=== PATIENT | female | born 1945 | race American Indian/Alaskan Native ===

== ENCOUNTER 2019-01-31 15:09 | Emergency (ER) | payer MEDICARE ==
[2019-01-31 16:27] VITALS: BP 150/80
--- NOTE | 2019-01-31 16:40 | Emergency Department Report ---
ED ENT HPI - General Chief complaint: Fall Stated complaint: FALL INJURY/TEETH FELL OUT/PAIN Time Seen by Provider: 01/31/19 16:35 Source: patient Mode of arrival: Ambulatory Limitations: No Limitations - History of Present Illness Initial comments: 73-year-old -[place] female presents to the emergency room complaining of a broken tooth and facial pain. Patient states that she was walking around in [place] on Friday in the rain and slipped and fell and broke her teeth in the front. Patient states that she has one of the tooth with her. Patient denies any active bleeding patient denies any discharge no cut to her lip no head injury. Patient has a past medical history of diabetes CHF hypertension. Patient does have a primary dentist in [place] her primary care doctor is Dr. Eugenio Duarte, appeals and generalist clerk is Dr. Geri ALONSO complaint: trauma/injury Onset/Timin -: days(s) Location: tooth # (9,8) Severity scale (0 -10): 9 Quality: aching Consistency: constant Improves with: none Worsens with: none Context- Dental: tooth knocked out Associated Symptoms: toothache. denies: gum swelling - Related Data Allergies Allergy/AdvReac Type Severity Reaction Status Date / Time No Known Allergies Allergy Unverified 01/31/19 15:11 ED Dental HPI - General Chief complaint: Fall Stated complaint: FALL INJURY/TEETH FELL OUT/PAIN Time Seen by Provider: 01/31/19 16:35 Source: patient Mode of arrival: Ambulatory Limitations: No Limitations - Related Data Allergies Allergy/AdvReac Type Severity Reaction Status Date / Time No Known Allergies Allergy Unverified 01/31/19 15:11 ED Review of Systems ROS: Stated complaint: FALL INJURY/TEETH FELL OUT/PAIN Other details as noted in HPI Comment: All other systems reviewed and negative ED Past Medical Hx - Past Medical History Hx Diabetes: Yes (TYPE 2) Hx COPD: Yes Additional medical history: CARDIOMYPATHY - Surgical History Past Surgical History?: No - Social History Smoking Status: Never Smoker Substance Use Type: None ED Physical Exam - General Limitations: No Limitations General appearance: alert, in no apparent distress - Head Head exam: Present: atraumatic, normocephalic - Expanded ENT Exam Expanded Teeth exam: Present: fractured tooth # (8), other (tooth 9 is out). Absent: gingival enlargement - Neck Neck exam: Present: normal inspection, full ROM - Respiratory Respiratory exam: Present: normal lung sounds bilaterally. Absent: respiratory distress - Cardiovascular Cardiovascular Exam: Present: regular rate, normal rhythm. Absent: systolic murmur, diastolic murmur, rubs, gallop - GI/Abdominal GI/Abdominal exam: Present: soft, normal bowel sounds - Neurological Exam Neurological exam: Present: alert, oriented X3 - Psychiatric Psychiatric exam: Present: normal affect, normal mood - Skin Skin exam: Present: warm, dry, intact, normal color. Absent: rash ED Course Vital Signs 01/31/19 01/31/19 15:34 16:26 Temperature 97.7 F Pulse Rate 86 70 Respiratory 18 16 Rate Blood Pressure 158/85 Blood Pressure 150/80 [Right] O2 Sat by Pulse 100 98 Oximetry ED Medical Decision Making - Medical Decision Making 73-year-old -[place] female presents to the emergency room complaining of a broken tooth and facial pain. Patient states that she was walking around in [place] on Friday in the rain and slipped and fell and broke her teeth in the front. Patient states that she has one of the tooth with her. Patient denies any active bleeding patient denies any discharge no cut to her lip no head injury. Patient has a past medical history of diabetes CHF hypertension. Patient does have a primary dentist in [place] her primary care doctor is Dr. Eugenio Duarte, appeals and generalist clerk is Dr. Nevarez Patient is to follow up with her primary dentist. Patient can take [id number] Tylenol as needed for pain management. Critical care attestation.: If time is entered above; I have spent that time in minutes in the direct care of this critically ill patient, excluding procedure time. ED Disposition Clinical Impression: Fractured tooth due to trauma without complication Qualifiers: Encounter type: initial encounter Fracture type: open Qualified Code(s): S02.5XXB - Fracture of tooth (traumatic), initial encounter for open fracture Tooth knocked out Qualifiers: Tooth loss class: unspecified tooth loss Qualified Code(s): K08.419 - Partial loss of teeth due to trauma, unspecified class Disposition: TO HOME OR SELFCARE Is pt being admited?: No Does the pt Need Aspirin: No Condition: Stable Instructions: Acute dental trauma (ED) Additional Instructions: Please follow-up which her dentist in the next 24-48 hours. You can take Tylenol for pain management. Referrals: [facility] [Outside] - 3-5 Days Your[facility]Dentist [Other] - 3-5 Days
== END 2019-01-31 17:50 | disposition home or self-care (01) ==
LOC: ED 15:09
DX: S02.5XXB Fracture of tooth (traumatic), initial encounter for open fracture (principal); E11.9 Type 2 diabetes mellitus without complications; J44.9 Chronic obstructive pulmonary disease, unspecified; I42.9 Cardiomyopathy, unspecified; W01.198A Fall on same level from slipping, tripping and stumbling with subsequent striking against other object, initial encounter; Y93.89 Activity, other specified; Y92.89 Other specified places as the place of occurrence of the external cause; Y99.8 Other external cause status
CPT/HCPCS: 99282